=== PATIENT | male | born 1960 | race Caucasian/White ===

== ENCOUNTER → 2017-02-01 | Outpatient (CLI) | payer OTHER ==
[~2017-02-01] MED LIST: ALPR0.25 PO; CITA20TA9 PO; HYDR1TAB2 PO; IBUP-1050 PO; METH5TAB PO; ROSU5TAB PO; [UNRECOGNIZED DRUG - CODE] PO
--- NOTE | 2017-02-01 15:59 | DIAGNOSTIC IMAGING REPORT ---
R HAND MIN 3 VIEWS ROUTINE CLINICAL HISTORY: M54.5 Chronic lower back right hand pain. COMPARISON: None. DISCUSSION: No fractures or dislocations are visualized. There is no erosive disease. There are small particular calcification the level the distal interphalangeal joints of the index and middle finger. There is mild osteophytic spurring most pronounced these levels. IMPRESSION: 1. No acute fractures 2. Mild osteoarthritic changes 3. No evidence of erosive disease Electronically signed by: Stas Medrano M.D. 02/01/2017 3:58 PM Dictated Date/Time: 02/01/2017 3:56 PM
[2017-02-01 16:02] LABS: C-REACTIVE PROTEIN < 0.29 mg/dl (0-0.29); RHEUMATOID FACTOR < 10.0 U/mL (0-15); TOTAL IRON BINDING CAPACITY 289 mcg/dl (250-450)
--- NOTE | 2017-02-01 16:02 | DIAGNOSTIC IMAGING REPORT ---
SI JOINTS 3 OR MORE VIEWS CLINICAL HISTORY: M54.5 Chronic lower back [id number] COMPARISON STUDY: No previous studies for comparison. FINDINGS: There is no evidence of SI joint fusion. There are no erosive changes. No fractures are visualized. There are no destructive lesions. IMPRESSION: No conventional radiographic evidence of an inflammatory sacroiliitis Electronically signed by: Stas Medrano M.D. 02/01/2017 4:01 PM Dictated Date/Time: 02/01/2017 4:00 PM
--- NOTE | 2017-02-01 16:03 | DIAGNOSTIC IMAGING REPORT ---
L HAND MIN 3 VIEWS ROUTINE HISTORY: 56 years-old Male M54.5 Chronic lower back [id number] chronic hand pain COMPARISON: Right hand radiographs of same day TECHNIQUE: 3 views of the left hand FINDINGS: There is positive ulnar variance of 3 mm with adjacent sclerosis and subcortical cystic changes of the lunate. Moderate first carpometacarpal osteoarthritis is noted. Mild interphalangeal osteoarthritis is also seen throughout. There is mild periarticular osteopenia. 3 mm metallic density projects along the volar lateral aspect of the wrist. No acute fracture or dislocation. IMPRESSION: 1. Degenerative changes about the hand as above without acute fracture or dislocation. 2. Positive ulnar variance of 3 mm with sclerosis and mild subcortical cystic changes of the lunate suggesting mild abutment sequela. 3. 3 mm metallic density focus projects along the volar lateral soft tissues adjacent to the distal radius suggesting foreign body. The above report was generated using voice recognition software. It may contain grammatical, syntax or spelling errors. Electronically signed by: Eric Braswell M.D. 02/01/2017 4:02 PM Dictated Date/Time: 02/01/2017 3:59 PM
--- NOTE | 2017-02-01 16:08 | DIAGNOSTIC IMAGING REPORT ---
R HIP UNILATERAL 2 VIEWS CLINICAL HISTORY: M54.5 Chronic lower back, right hip pain COMPARISON: None. DISCUSSION: No fractures or subluxations are visualized. The joint space appears well-preserved for age. There are no erosive or destructive changes. IMPRESSION: Unremarkable conventional radiographic evaluation of the right hip for age Electronically signed by: Stas Medrano M.D. 02/01/2017 4:07 PM Dictated Date/Time: 02/01/2017 4:06 PM
[2017-02-04 22:17] LABS: HLA-B27** TC 528X POSITIVE (NEGATIVE); PARVOVIRUS IgG INDEX 4.6 (<0.9); PARVOVIRUS IgM INDEX 0.2 (<0.9)
== END | disposition home or self-care (01) ==
LOC: C.RAD1850 14:36
PROVIDERS: ATTEND Internal Medicine Rheumatology
DX: M54.5 Low back pain (principal); M19.042 Primary osteoarthritis, left hand; M25.839 Other specified joint disorders, unspecified wrist; M79.9 Soft tissue disorder, unspecified